=== PATIENT | female | born 1975 | race Caucasian/White ===

== ENCOUNTER 2018-07-24 11:21 | Emergency (ER) | payer SELFPAY ==
[2018-07-24] MEDS ORDERED: NACL 0.9% 1000 ML 1,000 ML IV ONE ×2 (11:57→12:43)
[2018-07-24 12:24] LABS: Bacteria,Urine 1+ /HPF (Negative); Bilirubin,Urine NEG (Negative); Blood,Urine MOD (Negative); Color,Urine Yellow (Yellow); Mucus,Urine FEW /HPF; Urobilinogen,Urine < 2.0 mg/dL (<2.0)
[2018-07-24 12:26] LABS: Basophils # (Auto) 0.1 K/mm3 (0.0-0.1); Basophils % (Auto) 0.7 % (0.0-1.8); Eosinophils # (Auto) 0.2 K/mm3 (0.0-0.4); Eosinophils % (Auto) 2.6 % (0.0-4.3); Hematocrit 38.2 % (30.3-42.9); Hemoglobin 13.1 gm/dl (10.1-14.3); Lymphocytes # (Auto) 2.3 K/mm3 (1.2-5.4); Lymphocytes % (Auto) 29.3 % (13.4-35.0); Mean Corpuscular HGB Conc 34 % (30-34); Mean Corpuscular Hemoglobin 30 pg (28-32); Mean Corpuscular Volume 87 fl (79-97); Monocytes # (Auto) 0.3 K/mm3 (0.0-0.8); Monocytes % (Auto) 4.5 % (0.0-7.3); Platelet Count 328 K/mm3 (140-440); Red Blood Count 4.42 M/mm3 (3.65-5.03); Red Cell Distribution Width 12.8 % (13.2-15.2)
--- NOTE | 2018-07-24 12:49 | Emergency Department Report ---
ED General Adult HPI - General Chief complaint: Abdominal Pain Stated complaint: ABD PAIN/VOMITING Time Seen by Provider: 07/24/18 12:08 Source: patient Mode of arrival: Ambulatory Limitations: Language Barrier - History of Present Illness Initial comments: 43-year-old female with a history of hypertension presents with the complaint of right upper quadrant abdominal pain. Patient states that she has been having the pain since Sunday and it is progressively worsening. Patient states that she vomited 2 times today. Patient states that pain radiates to her back and states that it also causes her to be short of breath. Patient also complains of diarrhea with 2 episodes as well. Patient denies any hematemesis or hematochezia. Patient states she is currently on her last day of her menses. Patient states that upon initial presentation to the ER her pain was a 10 out of 10. Patient denies any dysuria. Patient denies any chest pain. - Related Data Previous Rx's Medication Instructions Recorded Last Taken Type HYDROcodone/APAP 5-325 [Bliss 1 each PO Q6HR PRN #20 tablet 07/24/18 Unknown Rx 5/325] Ondansetron [Zofran TAB] 4 mg PO Q8HR PRN 7 Days tablet 07/24/18 Unknown Rx Allergies Allergy/AdvReac Type Severity Reaction Status Date / Time No Known Allergies Allergy Verified 07/24/18 12:42 ED Review of Systems ROS: Stated complaint: ABD PAIN/VOMITING Other details as noted in HPI Constitutional: denies: chills, fever Eyes: denies: eye pain, eye discharge, vision change ENT: denies: ear pain, throat pain Respiratory: shortness of breath. denies: cough, wheezing Cardiovascular: denies: chest pain, palpitations Endocrine: no symptoms reported Gastrointestinal: abdominal pain, nausea, vomiting, diarrhea Genitourinary: denies: urgency, dysuria, discharge Musculoskeletal: denies: back pain, joint swelling, arthralgia Skin: denies: rash, lesions Neurological: denies: headache, weakness, paresthesias Psychiatric: denies: anxiety, depression Hematological/Lymphatic: denies: easy bleeding, easy bruising ED Past Medical Hx - Past Medical History Previous Medical History?: Yes Hx Hypertension: Yes - Surgical History Past Surgical History?: Yes Additional Surgical History: C section - Social History Smoking Status: Never Smoker Substance Use Type: None - Medications Home Medications: Home Medications Medication Instructions Recorded Confirmed Last Taken Type HYDROcodone/APAP 5-325 [Bliss 1 each PO Q6HR PRN #20 tablet 07/24/18 Unknown Rx 5/325] Ondansetron [Zofran TAB] 4 mg PO Q8HR PRN 7 Days tablet 07/24/18 Unknown Rx ED Physical Exam - General Limitations: Language Barrier General appearance: alert, other (awake; comfortable) - Head Head exam: Present: atraumatic, normocephalic - Eye Eye exam: Present: normal appearance - ENT ENT exam: Present: mucous membranes dry - Neck Neck exam: Present: normal inspection - Respiratory Respiratory exam: Present: normal lung sounds bilaterally. Absent: respiratory distress - Cardiovascular Cardiovascular Exam: Present: regular rate, normal rhythm. Absent: systolic murmur, diastolic murmur, rubs, gallop - GI/Abdominal GI/Abdominal exam: Present: soft, tenderness (in ruq ), normal bowel sounds, other (positive vences's sign). Absent: guarding, rebound - Extremities Exam Extremities exam: Present: normal inspection - Back Exam Back exam: Present: normal inspection - Neurological Exam Neurological exam: Present: alert, oriented X3 - Psychiatric Psychiatric exam: Present: normal affect, normal mood - Skin Skin exam: Present: warm, dry, intact, normal color. Absent: rash ED Course Vital Signs 07/24/18 07/24/18 07/24/18 11:27 11:42 11:45 Temperature 99.8 F H Pulse Rate 95 H 78 Respiratory 22 12 Rate Blood Pressure 191/118 154/90 O2 Sat by Pulse 100 95 96 Oximetry 07/24/18 11:54 Temperature Pulse Rate Respiratory 16 Rate Blood Pressure O2 Sat by Pulse 99 Oximetry ED Medical Decision Making - Lab Data Result diagrams: 07/24/18 12:11 07/24/18 12:11 - Radiology Data Radiology results: image reviewed - Medical Decision Making Patient initially received narcotic appendectomy which help to minimize her pain. Patient had an ultrasound which showed the presence of cholelithiasis without any evidence of pericholecystic fluid. Chin has no elevated white count , and has normal LFTs as well, and her pain is improved. Case was discussed with general surgeon crop pest control specialist patient to be discharged with po pain medication. This was relayed to the patient and she was agreeable with this disposition. - Differential Diagnosis Obsturction; Cholelithiasis; Pancreatitis; Pneumonia; Dehydration Critical care attestation.: If time is entered above; I have spent that time in minutes in the direct care of this critically ill patient, excluding procedure time. ED Disposition Clinical Impression: Hypertension, Cholelithiasis Disposition: TO HOME OR SELFCARE Is pt being admited?: No Does the pt Need Aspirin: No Condition: Stable Instructions: Abdominal Pain (ED), Hypertension (ED) Prescriptions: HYDROcodone/APAP 5-325 [Bliss 5/325] 1 each PO Q6HR PRN #20 tablet PRN Reason: Pain Ondansetron [Zofran TAB] 4 mg PO Q8HR PRN 7 Days tablet PRN Reason: Nausea Referrals: PRIMARY CARE,MD [Primary Care Provider] - 3-5 Days LILY CLIFFORD DO [Staff Physician] - 3-5 Days Time of Disposition: 15:33 Print Language: CHINESE
[2018-07-24 12:56] LABS: Alanine Aminotransferase 67 units/L (7-56); Albumin 4.2 g/dL (3.9-5); BUN/Creatinine Ratio 23; Blood Urea Nitrogen 9 mg/dL (7-17); Calcium 9.2 mg/dL (8.4-10.2); Hemolysis Index 9; Lipase 29 units/L (13-60)
--- NOTE | 2018-07-24 13:17 | XRay Report ---
AP CHEST: HISTORY: Shortness of breath AP view of the chest demonstrates a normal mediastinal and cardiac contour with clear lungs and normal bony and soft tissue structures. IMPRESSION: Unremarkable AP chest.
--- NOTE | 2018-07-24 14:14 | Cat Scan Report ---
CT ABDOMEN PELVIS WITHOUT CONTRAST: HISTORY: Abdominal pain. COMPARISON: No previous CT at this facility. Correlation is made with an ultrasound of the abdomen performed earlier today. TECHNIQUE: Helical CT in 1.25mm intervals without IV contrast. Sagittal and coronal reconstructions. FINDINGS: Lung bases: Normal. Liver: There is moderate to severe diffuse fatty infiltration throughout the liver. No enlargement or obvious focal mass on noncontrast CT. Biliary system: There are diffuse focal gallbladder wall calcifications consistent with a porcelain gallbladder. Subtle gallstones are also suspected. The CBD and intrahepatic biliary ducts are unremarkable. Pancreas: Normal. Spleen: Normal. Kidneys/ureters/bladder: Normal. Adrenal glands: Normal. Aorta: Normal. Intestines: Within normal limits given no oral contrast was administered. Appendix: Normal. Pelvic viscera: Normal. Bilateral tubal ligation clips are noted Ascites: None. Adenopathy: None. Musculoskeletal: Normal. IMPRESSION: Porcelain gallbladder. Cholelithiasis. Correlate for biliary symptoms or acute cholecystitis. Diffuse fatty infiltration of the liver.
--- NOTE | 2018-07-24 14:15 | Ultrasound Report ---
ULTRASOUND ABDOMEN LIMITED: TECHNIQUE: Transabdominal ultrasound with color Doppler interrogation. HISTORY: right upper quadrant abdominal pain. COMPARISON: Correlation is made with a noncontrast CT abdomen and pelvis performed the same day. FINDINGS: LIVER: There is diffuse fatty infiltration throughout the liver. No obvious mass or surface nodularity. BILIARY SYSTEM: Porcelain gallbladder findings are again noted. Sludge and a few large gallstones measuring up to 2.3 cm are identified. The gallbladder is borderline dilated. No pericholecystic fluid. The gallbladder wall measures 2 mm in thickness. The CBD measures 4 mm. PANCREAS: Obscured. RIGHT KIDNEY: Normal. PROXIMAL AORTA: Normal. ASCITES: None. IMPRESSION: Porcelain gallbladder. Cholelithiasis. Correlate for acute cholecystitis. Fatty change in the liver.
[2018-07-24] MEDS ORDERED: PERCOCET 5/325 PO STA (15:01)
[2018-07-24 16:53] VITALS: BP 139/83
== END 2018-07-24 16:34 | disposition home or self-care (01) ==
LOC: ED 11:21
DX: K80.20 Calculus of gallbladder without cholecystitis without obstruction (principal); I10 Essential (primary) hypertension
CPT/HCPCS: 36415; 71045; 74176; 76705; 80053; 81001; 83690; 84703; 85025; 96360; 96361; 99284; J7030